=== PATIENT | female | born 1945 | race Caucasian/White ===

== ENCOUNTER → 2017-08-11 | Outpatient (CLI) | payer MEDICARE, OTHER ==
--- NOTE | 2017-08-11 14:25 | RAD ---
Thyroid ultrasound, 08/11/2017: History: Thyromegaly The right lobe of the gland measures 7.0 x 2.8 x 4.6 cm while the left lobe of the gland measures 5.2 x 1.7 x 1.9 cm. Multiple appearing thyroid nodules are present in both lobes. The largest of these measures 3.4 cm in greatest diameter and lies in the midportion of the right lobe of the gland. Its margins are smooth with a hypoechoic rim. Its internal echoes are heterogeneous. There is internal color flow. A single tiny probable calcification is seen along its rim. It is wider than tall. There is a 2.7 cm solid-appearing nodule with similar sonographic characteristics in the lower pole of the right lobe of the gland. No definite internal calcification is seen. Its inferior margin is less clearly defined due to its low position. There is a 3 cm solid nodule at the junction of the right lobe of the gland and the isthmus. There appear to be several internal calcifications. This nodule is smooth and wider than tall. There is a 2.1 cm solid, heterogeneous nodule in the lower pole of the left lobe of the gland. No internal calcifications are seen. IMPRESSION: Multinodular goiter as described above. The sonographic characteristics of these nodules are nonspecific. Ultrasound-guided biopsy of the dominant nodule in the mid right lobe and the slightly smaller nodule containing calcifications at the junction of the isthmus and right lobe may be considered for further evaluation.
== END | disposition home or self-care (01) ==
LOC: US 12:42
PROVIDERS: ATTEND Nurse Practitioner Family
DX: E04.2 Nontoxic multinodular goiter (principal)
CPT/HCPCS: 76536

== ENCOUNTER → 2017-10-29 | Outpatient (CLI) | payer MEDICARE, OTHER ==
[~2017-10-29] MED LIST: IOHEXOL 240 MG/ML 50ML VIAL. ONE; IOHEXOL 300 MG/ML 75 ML VIAL. IV ONE
--- NOTE | 2017-10-29 15:14 | RAD ---
CT abdomen and pelvis with contrast Indication: LOWER ABDOMINAL PAIN WITH BOWEL CHANGES
ORAL AND 75MLS OMNI 300 IV CONTRAST. . Technique: Intravenous contrast is given. Oral contrast was also given. Comparison:None available Exposure: One or more of the following individualized dose reduction techniques were utilized for this examination: 1. Automated exposure control 2. Adjustment of the mA and/or kV according to patient size 3. Use of iterative reconstruction technique. FINDINGS: Lower thorax: Tiny noncalcified pulmonary nodule on image 1, in the posterior right lung base, measures 2 mm. Mild linear fibrosis or atelectasis in the bases. Pneumoperitoneum:No gross pneumoperitoneum. Liver: Unremarkable Spleen: Unremarkable Pancreas: Tiny low-density lesion in the proximal body of the pancreas, measures 5 mm diameter. This is too small to accurately characterize, but may be fatty, and therefore most compatible with a small lipoma. Adrenals: Small left adrenal nodule measures 19 mm diameter. This measures greater than the density typically associated with an adenoma. Kidneys: Large cyst arising from the lower pole of the left kidney measures 12 Hounsfield units and 7 cm diameter. Gallbladder: Surgically absent. Mild dilatation of the common bile duct. Aorta: Abdominal aorta is nonaneurysmal Lymph nodes: No significant enlargement GI tract: Mild colonic diverticulosis. No evidence of acute colitis. No bowel obstruction. Appendix: Not visualized. Ascites: No gross ascites. Urinary bladder: Not opacified, but no apparent abnormality. No evidence of pelvic mass. Bones: Degenerative changes of the spine. IMPRESSION: 1. Small 5 mm hypodense lesion of the pancreas. This may represent a small lipoma but is too small to characterize. Depending on concern, consider follow-up CT scan to monitor stability, or further evaluation with MRI of the pancreas. 2. Small 2 mm right lower lobe pulmonary nodule. Consider follow-up CT chest in 12 months if patient is high risk, as per Fleischner Society criteria. 3. Small left adrenal mass measures 19 mm. This measures about 60 Hounsfield units and is therefore indeterminate. Follow-up CT scan in 4 months could be of benefit to determine if this is stable. Depending on level of concern, MRI or PET/CT could also further evaluate. 4. No acute findings in the abdomen or pelvis. Electronically signed by: Ethan Merino MD (10/29/2017 3:10 PM) [facility]
== END | disposition home or self-care (01) ==
LOC: CT 10:07
PROVIDERS: ATTEND Nurse Practitioner Family
DX: K57.30 Diverticulosis of large intestine without perforation or abscess without bleeding (principal); K86.9 Disease of pancreas, unspecified; K52.89 Other specified noninfective gastroenteritis and colitis; E27.9 Disorder of adrenal gland, unspecified; R91.1 Solitary pulmonary nodule
CPT/HCPCS: 74177; Q9966; Q9967

== ENCOUNTER → 2018-02-25 | Outpatient (CLI) | payer MEDICARE, OTHER ==
[~2018-02-25] MED LIST changes: +IOHEXOL 240 MG/ML 50ML VIAL. PO ONE
--- NOTE | 2018-02-25 09:38 | RAD ---
PQRS Compliance Statement: One or more of the following individualized dose reduction techniques were utilized for this examination: 1. Automated exposure control 2. Adjustment of the mA and/or kV according to patient size 3. Use of iterative reconstruction technique CT abdomen/pelvis with contrast 02/25/2018 9:00 AM INDICATION: 4 month follow-up for adrenal lesion. COMPARISON: CT abdomen/pelvis August 28, 2018 TECHNIQUE: Multiple axial CT images of the abdomen and pelvis were obtained after the intravenous administration of 75 mL Omnipaque 300. Coronal and sagittal reformats are provided. FINDINGS: Previously seen 2 mm noncalcified pulmonary nodule is outside of the field of view on this examination. Lung bases are clear. Heart size is within normal limits. Hypoattenuation of the hepatic parenchyma suggestive of hepatic steatosis. No suspicious hepatic masses are identified. Spleen and right adrenal gland are normal in appearance. There is a left adrenal nodule which is heterogeneously enhancing which measures 19 x 14 mm, not significantly changed since the prior examination. Stable focal fat attenuation focus within the neck/body of the pancreas which may represent interspersed fat versus lipoma. This finding is not changed since the prior examination. Gallbladder surgically absent. Common bile duct measures 19 mm which is stable and favor to be secondary to reservoir effect status post cholecystectomy. The abdominal aorta is normal in course and caliber. There are no pathologically enlarged lymph nodes in the abdomen and pelvis. There is no abdominal free fluid. There is no free intraperitoneal air. Mild atherosclerotic changes of the abdominal aorta are present. The kidneys enhance symmetrically. There is no suspicious renal mass. There is no hydronephrosis. There are no suspected calculi within the kidneys, ureters or urinary bladder. There is a 5.7 cm simple cyst arising from the inferior pole the left kidney. Oral contrast was administered. Opacified bowel loops demonstrate normal mucosal fold pattern. Small and large bowel are normal in caliber. There is no evidence for bowel obstruction. There are no pericolonic inflammatory changes. A normal, nondilated appendix is visualized without adjacent inflammatory changes. Moderate diverticulosis of the sigmoid colon is noted without adjacent inflammatory changes. Endometrium is thickened measuring 10 mm. No definite masses are identified within the uterus. Right adnexal cyst measures 1.8 cm. Findings are stable dating back to 11/26/2017. Correlation with any hormone replacement therapy is recommended. No suspicious osseous lesions are identified. Urinary bladder is within normal limits given degree of distention. IMPRESSION: 1. Stable heterogeneously enhancing left adrenal lesion measuring 19 x 14 mm. Primary consideration would be given for an adrenal adenoma, however further characterization with adrenal protocol CT or MRI may be of benefit. 2. Stable focal fat attenuation within the body/neck of the pancreas measuring 5 mm. This favors interspersed fat or a lipoma. 3. Stable inferior pole left renal cyst. 4. Marginally thickened endometrium for a postmenopausal female. Correlation with hormone replacement therapy is recommended. Further characterization with pelvic ultrasound or MRI may be of benefit. Correlate with any history of dysfunctional uterine bleeding. This finding is overall stable from prior examination. Right adnexal cyst measures 1.8 cm. Electronically signed by: Gifty Colin MD (02/25/2018 9:35 AM) [facility]
== END | disposition home or self-care (01) ==
LOC: CT 07:52
PROVIDERS: ATTEND Nurse Practitioner Family
DX: N28.1 Cyst of kidney, acquired (principal); D35.00 Benign neoplasm of unspecified adrenal gland; N83.8 Other noninflammatory disorders of ovary, fallopian tube and broad ligament; Z90.49 Acquired absence of other specified parts of digestive tract
CPT/HCPCS: 74177; Q9966; Q9967

== ENCOUNTER 2018-12-09 16:16 | Inpatient (IN) | payer MEDICARE, OTHER ==
[~2018-12-09] VITALS: Ht 157.5 cm; Wt 71.2 kg
[2018-12-09 16:56] VITALS: BP 150/90
[2018-12-09] MEDS ORDERED: ACETAMINOPHEN 325 MG TABLET PO PRN (17:00)
[2018-12-09] MEDS ORDERED: IOHEXOL 240 MG/ML 50ML VIAL. ONE (17:17)
[2018-12-09 17:20] LABS: BASO % 0 % (0-3); EOS % 0 % (0-3); HEMATOCRIT 39.9 % (36.0-47.0); HEMOGLOBIN 13.4 g/dL (12.0-15.5); LYMPH # 2.1 x10^3/uL (1.0-4.8); LYMPH % 15 % (24-48); MEAN CORPUSCULAR HEMOGLOBIN 28 pg (25-35); MEAN CORPUSCULAR HGB CONC 34 g/dL (31-37); MEAN CORPUSCULAR VOLUME 84 fL (79-100); MONO # 1.4 x10^3/uL (0.0-1.1); MONO % 10 % (0-9); NEUT # 10.1 x10^3uL (1.8-7.7); NEUT % 74 % (31-73); PLATELET COUNT 260 x10^3/uL (140-400); RED BLOOD COUNT 4.73 x10^6/uL (3.50-5.40); RED CELL DISTRIBUTION WIDTH 13.9 % (11.5-14.5); WHITE BLOOD COUNT 13.7 x10^3/uL (4.0-11.0)
[2018-12-09] MEDS ORDERED: IOHEXOL 300 MG/ML 75 ML VIAL. IV ONE (17:30)
[2018-12-09 17:47] LABS: ALBUMIN 3.9 g/dL (3.4-5.0); ALBUMIN/GLOBULIN RATIO 1.1 (1.0-1.7); CALCIUM 9.2 mg/dL (8.5-10.1); CREATININE 0.7 mg/dL (0.6-1.0); GFR 82.3; MAGNESIUM 1.7 mg/dL (1.8-2.4); POTASSIUM 3.6 mmol/L (3.5-5.1); TOTAL PROTEIN 7.6 g/dL (6.4-8.2)
[2018-12-09] MEDS: IV NORMAL SALINE 1,000ML 1,000 ML IV SCH (18:30)
[2018-12-09 19:42] VITALS: BP 129/79
[2018-12-09 20:24] LABS: BACTERIA,URINE 0 /HPF (0-FEW); BILIRUBIN,URINE NEG (NEG); CLARITY,URINE HAZY; COLOR,URINE YELLOW; GLUCOSE,URINE NEG (NEG); NITRITE,URINE NEG (NEG); RBC,URINE 0 /HPF (0-2); SQUAMOUS EPITHELIAL CELL,UR OCC /LPF; UROBILINOGEN,URINE 0.2 mg/dL (0.2 mg/dL); WBC,URINE 0 /HPF (0-4)
[2018-12-09 22:20] VITALS: BP 113/71
[2018-12-09] MEDS ORDERED: KETOROLAC 15 MG/ML VIAL. IV PRN (23:00)
[2018-12-09] MEDS ORDERED: ONDANSETRON ODT 4 MG TAB.RAPDIS PO PRN (23:00)
[2018-12-09] MEDS ORDERED: ZOLPIDEM 5 MG TABLET. PO PRN (23:00)
[2018-12-10] MEDS: IV NORMAL SALINE 1,000ML 1,000 ML IV SCH ×3 (05:02→16:52)
[2018-12-10 05:08] VITALS: BP 110/67
[2018-12-10 06:24] LABS: BASO % 0 % (0-3); CALCIUM 8.2 mg/dL (8.5-10.1); CREATININE 0.6 mg/dL (0.6-1.0); EOS # 0.1 x10^3/uL (0.0-0.7); EOS % 1 % (0-3); GFR 98.3; HEMATOCRIT 34.4 % (36.0-47.0); HEMOGLOBIN 11.7 g/dL (12.0-15.5); LYMPH # 1.4 x10^3/uL (1.0-4.8); LYMPH % 13 % (24-48); MEAN CORPUSCULAR HEMOGLOBIN 29 pg (25-35); MEAN CORPUSCULAR HGB CONC 34 g/dL (31-37); MEAN CORPUSCULAR VOLUME 85 fL (79-100); MONO # 1.1 x10^3/uL (0.0-1.1); MONO % 10 % (0-9); NEUT # 8.5 x10^3uL (1.8-7.7); NEUT % 76 % (31-73); PLATELET COUNT 204 x10^3/uL (140-400); POTASSIUM 3.6 mmol/L (3.5-5.1); RED BLOOD COUNT 4.04 x10^6/uL (3.50-5.40); RED CELL DISTRIBUTION WIDTH 13.8 % (11.5-14.5); WHITE BLOOD COUNT 11.1 x10^3/uL (4.0-11.0)
[2018-12-10] MEDS ORDERED: OMEP20CA9 PO (06:49)
[2018-12-10] MEDS ORDERED: FENO54TA PO (06:49)
[2018-12-10] MEDS ORDERED: RALO60TA10 PO (06:49)
[2018-12-10] MEDS ORDERED: MAGNESIUM SULFATE 2GM 50 ML IV ONE (07:50)
[2018-12-10] MEDS ORDERED: PANTOPRAZOLE 40 MG TABLET. PO ONE (08:22)
--- NOTE | 2018-12-10 08:38 | RAD ---
CT of the abdomen and pelvis with contrast, 12/09/2018: HISTORY: Abdominal pain, fever, possible diverticulitis Multidetector CT imaging was performed following oral and IV administration of contrast. Comparison is made to a study from 02/25/2018. There is mild linear scarring in the lung bases. The gallbladder is surgically absent. Prominence of the common bile duct is probably secondary to the postcholecystectomy state. No intrahepatic bile duct dilatation or hepatic mass is seen. The pancreas is unremarkable. The spleen is of normal size. There is a 6.7 cm cyst arising from the lower pole the left kidney. The kidneys are otherwise unremarkable. There is a heterogeneously enhancing left adrenal nodule. In the axial plane it measures 2.1 cm in maximum dimension compared to 1.9 cm on the 02/25/2018 exam. In the coronal plane it measures 2.5 cm in craniocaudad extent compared to a measurement of 2.1 cm on a study from 10/29/2017. The nodule therefore appears to be slowly enlarging. Its CT characteristics are nonspecific. The right adrenal gland is unremarkable. Moderate aortoiliac calcific plaquing is present without evidence of aneurysm. No abdominal or pelvic adenopathy is seen. The uterus is of normal size. There is extensive sigmoid diverticulosis. There is retained contrast material within multiple diverticula. There is probable mural thickening at the mid sigmoid level, although the lumen is not clearly defined. There is streaky increased density in the paracolic fat at this level compatible with inflammation. No discrete paracolic abscess or extraluminal gas collections are seen. There is no evidence of bowel obstruction. No free fluid is evident in the abdomen or pelvis. There are mild scattered degenerative changes in the spine. IMPRESSION: 1. Sigmoid diverticulitis. 2. Slowly enlarging left adrenal nodule. MR scanning may be useful for further evaluation. 3. Moderate sized left renal cyst. PQRS Compliance Statement: One or more of the following individualized dose reduction techniques were utilized for this examination: 1. Automated exposure control 2. Adjustment of the mA and/or kV according to patient size 3. Use of iterative reconstruction technique Electronically signed by: Tyler Shah MD (12/10/2018 8:36 AM) [facility]
[2018-12-10] MEDS: PANTOPRAZOLE 40 MG TABLET. PO SCH (09:00)
[2018-12-10] MEDS: FENOFIBRATE NANOCRYSTALLIZED 48 MG TABLET PO SCH (09:00)
[2018-12-10 10:50] VITALS: BP 109/70
[2018-12-10] MEDS ORDERED: ONDANSETRON PF 4 MG/2 ML VIAL. IV PRN (11:15)
[2018-12-10 14:54] VITALS: BP 113/69
--- NOTE | 2018-12-10 18:56 | PN ---
DATE: 12/10/2018 SUBJECTIVE: A 73-year-old female came in with left lower quadrant pain. She has diverticulitis, never had it before. The patient's white count went from 13 down to 11. OBJECTIVE: VITAL SIGNS: The patient's vital signs remain basically stable, low grade temperature of 99.2, blood pressure 110/67, respiratory rate 18, pulse 81. GENERAL: The patient is alert and oriented. LUNGS: Clear. CARDIOVASCULAR: Stable. ABDOMEN: Definitely tender in the left lower quadrant, says it is a little better from yesterday, but still marked guarding was noted. LABORATORY DATA: Noted above. IMPRESSION: Diverticulitis. Continue to monitor the patient accordingly, continue with IV antibiotic. She continues on metronidazole and levofloxacin, probably on a clear liquid diet for now. Discussed diverticulitis with her, probably needs colonoscopy in a couple of months. IMPRESSION: Diverticulitis. PLAN: As above. KIRA BRICEÑO MD DR: JEREMI/mohit JOB#: [id number] / [id number]
[2018-12-10 19:20] VITALS: BP 111/71
[2018-12-10] MEDS: LACTOBACILLUS RHAMNOSUS GG 1 CAPSULE. PO SCH (21:50)
[2018-12-10 23:00] VITALS: BP 108/73
[2018-12-11 04:35] VITALS: BP 111/70
[2018-12-11] MEDS ORDERED: NON FORMULARY ITEM (Omeprazole 20 MG) PO SCH (07:30)
[2018-12-11] MEDS: FENOFIBRATE NANOCRYSTALLIZED 48 MG TABLET PO SCH (07:42)
[2018-12-11] MEDS: LACTOBACILLUS RHAMNOSUS GG 1 CAPSULE. PO SCH ×2 (07:42→21:35)
[2018-12-11] MEDS: PANTOPRAZOLE 40 MG TABLET. PO SCH (07:42)
[2018-12-11] MEDS: IV NORMAL SALINE 1,000ML 1,000 ML IV SCH ×2 (07:43→17:46)
[2018-12-11 10:15] VITALS: BP 124/75
[2018-12-11 16:00] VITALS: BP 147/78
[2018-12-11 19:16] VITALS: BP 133/78
[2018-12-11 23:10] VITALS: BP 120/74
--- NOTE | 2018-12-12 00:20 | PN ---
DATE: 12/11/2018 SUBJECTIVE: A 73-year-old female in with severe diverticulitis. The patient is resting fairly comfortably. She has been pretty much afebrile. She did have 1 low grade temperature of 99.2 and considering that her pulse and the rest of her labs have been looking fairly stable. The patient otherwise continues to receive IV Flagyl and Levaquin. She is still having tenderness in the left lower quadrant and so reluctant to turn her over to oral antibiotics at this time. OBJECTIVE: VITAL SIGNS: Otherwise, her blood pressure 147/80, respiratory rate 18, pulse 65, afebrile. LUNGS: Diminished, clear. CARDIOVASCULAR: Stable. ABDOMEN: Soft, diffuse tenderness in the left lower quadrant. IMPRESSION: Diverticulitis. PLAN: Continue on IV antibiotic therapy. She is on a low fiber diet. Continue with such. KIRA BRICEÑO MD DR: JEREMI/mohit JOB#: [id number] / [id number]
[2018-12-12] MEDS: IV NORMAL SALINE 1,000ML 1,000 ML IV SCH ×2 (04:59→15:00)
[2018-12-12 05:49] VITALS: BP 127/75
[2018-12-12] MEDS: LACTOBACILLUS RHAMNOSUS GG 1 CAPSULE. PO SCH (08:28)
[2018-12-12] MEDS: FENOFIBRATE NANOCRYSTALLIZED 48 MG TABLET PO SCH (08:30)
[2018-12-12] MEDS: PANTOPRAZOLE 40 MG TABLET. PO SCH (08:30)
[2018-12-12 12:13] LABS: BASO # 0.1 x10^3/uL (0.0-0.2); BASO % 1 % (0-3); EOS # 0.2 x10^3/uL (0.0-0.7); EOS % 3 % (0-3); HEMATOCRIT 34.1 % (36.0-47.0); HEMOGLOBIN 11.5 g/dL (12.0-15.5); LYMPH # 1.9 x10^3/uL (1.0-4.8); LYMPH % 31 % (24-48); MEAN CORPUSCULAR HEMOGLOBIN 29 pg (25-35); MEAN CORPUSCULAR HGB CONC 34 g/dL (31-37); MEAN CORPUSCULAR VOLUME 86 fL (79-100); MONO # 0.5 x10^3/uL (0.0-1.1); MONO % 9 % (0-9); NEUT # 3.3 x10^3uL (1.8-7.7); NEUT % 56 % (31-73); PLATELET COUNT 200 x10^3/uL (140-400); RED BLOOD COUNT 3.96 x10^6/uL (3.50-5.40); RED CELL DISTRIBUTION WIDTH 13.9 % (11.5-14.5)
[2018-12-12 12:30] LABS: ALBUMIN 2.9 g/dL (3.4-5.0); ALBUMIN/GLOBULIN RATIO 0.8 (1.0-1.7); CALCIUM 8.5 mg/dL (8.5-10.1); CREATININE 0.6 mg/dL (0.6-1.0); GFR 98.3; POTASSIUM 3.8 mmol/L (3.5-5.1); TOTAL BILIRUBIN 0.2 mg/dL (0.2-1.0); TOTAL PROTEIN 6.4 g/dL (6.4-8.2)
[2018-12-12] MEDS ORDERED: METR250T PO (14:53)
[2018-12-12] MEDS ORDERED: LEVO500T59 PO (14:53)
--- NOTE | 2018-12-12 16:33 | DS ---
DATE OF DISCHARGE: 12/12/2018 HOSPITAL COURSE: The patient is a 73-year-old female patient who was admitted on 12/10/2018 with abdominal pain, mostly in her left lower quadrant. She has diverticulitis, never had any episode like this before. Her white cell count was elevated and did have a low grade fever. Initially, she was started on IV Flagyl as well as Levaquin. She did well. She has had no fever, abdominal pain has largely subsided. Her white cell count came down steadily from 13,700 down to 6,000 and a decision was made to discharge her home to continue treatment on oral antibiotic. PHYSICAL EXAMINATION: GENERAL: When I saw her this afternoon, she looked well and was clearly in no apparent respiratory distress. No pallor, jaundice, cyanosis, or thyromegaly. No jugular venous distension. No limb edema. VITAL SIGNS: Her heart rate was 57, blood pressure was 127/75, temperature was 97.9, respiratory rate was 16 and oxygen saturation was 94%. HEAD, EYES, EARS, NOSE AND THROAT: Showed normocephalic, atraumatic. NECK: Supple. HEART: Showed normal first and second heart sounds. No gallop, rub or murmur. CHEST: Clear to auscultation. No crepitation or rhonchi. ABDOMEN: Distended, soft, nontender. NEUROLOGIC: She was awake, alert, responding appropriately. All cranial nerves are intact. She moves extremities without difficulty. She ambulates without assistance or assistive devices. Her intake was 3260, output was 1550. LABORATORY DATA: As of this morning, her white cell count was 6000, hemoglobin 11.5, hematocrit 34, MCV 86 and platelet count of 200,000. Her serum sodium was 144, potassium 3.8, chloride 110, bicarbonate 24, anion gap of 10, BUN 10, creatinine 0.6, estimated GFR was 98 mL per minute. Her glucose was 111. Her calcium was 8.5. Total bilirubin, AST, ALT, alkaline phosphatase were normal. Total protein was 6.4, albumin was 2.9. DISCHARGE MEDICATIONS: She was discharged home to continue on fenofibrate 54 mg daily, omeprazole 20 mg daily, raloxifene 60 mg once a day, Flagyl 500 mg 3 times a day for 7 days, and Levaquin 500 mg once a day for 7 days. FINAL DISCHARGE DIAGNOSIS: Acute diverticulitis. CASSY VELA MD DR: MAGDALENO/mohit JOB#: [id number] / [id number]
== END 2018-12-12 16:55 | disposition home or self-care (01) | DRG 872 ==
LOC: 1 SOUTH 16:40
PROVIDERS: ADMIT Family Medicine; ATTEND Family Medicine
DX: A41.9 Sepsis, unspecified organism (principal); K57.92 Diverticulitis of intestine, part unspecified, without perforation or abscess without bleeding; Z88.0 Allergy status to penicillin; Z88.2 Allergy status to sulfonamides; Z88.8 Allergy status to other drugs, medicaments and biological substances
CPT/HCPCS: 36415; 74177; 80048; 80053; 81001; 82150; 83605; 83690; 83735; 84443; 85025; 87040; J1885; J1956; J2405; J3475; J3490; Q9967; J7030

== ENCOUNTER 2018-12-27 09:00 | Emergency (ER) | payer OTHER ==
[~2018-12-27] VITALS: Ht 157.5 cm; Wt 68.8 kg
[~2018-12-27 09:00] MED LIST changes: +FENO54TA PO; -IOHEXOL 240 MG/ML 50ML VIAL. ONE; -IOHEXOL 240 MG/ML 50ML VIAL. PO ONE; -IOHEXOL 300 MG/ML 75 ML VIAL. IV ONE; +LEVO500T59 PO; +METR250T PO; +OMEP20CA9 PO; +RALO60TA10 PO
--- NOTE | 2018-12-27 09:19 | PHYS DOC ---
Adult General Chief Complaint Chief Complaint: BACK PAIN OR INJURY [facility] HPI 73-year-old female presents with right shoulder blade pain. The patient states that the pain started after she woke up from a nap. She had been sleeping on her right arm. She initially had some neck discomfort that day, but the pain is now at the inferior angle of the shoulder blade. She currently rates it a 6 out of 10, throbbing pain. She has no direct trauma or overuse that she can think of. She has been taking ibuprofen, Tylenol, Voltaren gel, and lidocaine patches. The patches help a little bit, but the pain continues to come in waves. She does have some mild shortness of breath when she takes a deep breath and the pain and spasms. She denies diaphoresis. Exertion doesn't seem to make it worse. The patient has no cardiac history. She has not had a cardiac catheter or stress test. She denies fever or chills. Denies cough or other symptoms of URI. No history of kidney stones. Denies dysuria or urinary frequency. Review of Systems Review of Systems Constitutional: Denies fever or chills [] Eyes: Denies change in visual acuity, redness, or eye pain [] HENT: Denies nasal congestion or sore throat [] Respiratory: Denies cough or shortness of breath [] Cardiovascular: No additional information not addressed in HPI [] GI: Denies abdominal pain, nausea, vomiting, bloody stools or diarrhea [] : Denies dysuria or hematuria [] Musculoskeletal: right shoulder blade pain [] Integument: Denies rash or skin lesions [] Neurologic: Denies headache, focal weakness or sensory changes [] Endocrine: Denies polyuria or polydipsia [] All other systems were reviewed and found to be within normal limits, except as documented in this note. Allergies Allergies Allergies Coded Allergies Type Severity Reaction Last Updated Verified Penicillins Allergy Intermediate 12/10/18 Yes Sulfa (Sulfonamide Antibiotics) Allergy Intermediate 12/10/18 Yes dexamethasone Allergy Intermediate 12/10/18 Yes sulfasalazine Allergy Intermediate 12/10/18 Yes Uncoded Allergies Type Severity Reaction Last Updated Verified STEROIDS Adverse Reaction Unknown flushing, rapid heartrate, sleeplessness Physical Exam Physical Exam Constitutional: Well developed, well nourished, no acute distress, non-toxic appearance. [] HENT: Normocephalic, atraumatic, bilateral external ears normal, oropharynx moist, no oral exudates, nose normal. [] Eyes: PERRLA, EOMI, conjunctiva normal, no discharge. [] Neck: Normal range of motion, no tenderness, supple, no stridor. [] Cardiovascular:Heart rate regular rhythm, no murmur [] Lungs & Thorax: Bilateral breath sounds clear to auscultation [] Abdomen: Bowel sounds normal, soft, no tenderness, no masses, no pulsatile masses. [] Skin: Warm, dry, no erythema, no rash. [] Back: Mild tenderness to palpation of inferior angle right scapula [] Extremities: No tenderness, no cyanosis, no clubbing, ROM intact, no edema. [] Neurologic: Alert and oriented X 3, normal motor function, normal sensory function, no focal deficits noted. [] Psychologic: Affect normal, judgement normal, mood normal. [] EKG EKG [] Radiology/Procedures Radiology/Procedures [] Impressions: THORACIC SPINE 3V, CHEST PA LATERAL History: Upper Thoracic pain x 3 days, no known falls Comparison: None. Findings: PA and lateral views of chest were obtained. Total 3 images of the thoracic spine were provided. The cardiomediastinal silhouette is normal. Pulmonary vasculature is normal. Mild bibasilar atelectasis is present. Calcified hilar lymph nodes are present. No pleural effusion or pneumothorax is seen. There is no acute bone abnormality. Right upper quadrant surgical clips are present. Alignment is normal. No displaced fracture or bony destruction. Vertebral body heights are unremarkable. IMPRESSION: Mild bibasilar atelectasis. Consider follow-up to resolution. No acute bony process. Electronically signed by: Viviana Smith MD (12/27/2018 9:53 AM) [facility] DICTATED AND SIGNED BY: VIVIANA SMITH MD DATE: 12/27/18 0953 CC: NAZARIO FUNEZ DO; KIRA BRICEÑO MD ~ Course & Med Decision Making Course & Med Decision Making Pertinent Labs and Imaging studies reviewed. (See chart for details) The patient's x-rays are negative for acute fracture or misalignment. She does have shown degenerative change in the spine and neck. The patient's EKG is unremarkable. Her labs are unremarkable. Her troponin is negative. Her chest x- ray shows some mild atelectasis which may be due to her not taking deep breaths due to pain. The patient's symptoms sound suspicious of possible disc herniation in the C5-C7 region. She is not having any upper extremity symptoms, but is having neck pain in this region and the timing of the beginning of her symptoms is suspicious for cervical spine cause. The patient cannot tolerate steroids. Advised 6 her milligrams of ibuprofen 3 times a day and follow with her PCP to consider further imaging and/or physical therapy. The patient understands this and is in agreement. She is stable for discharge at this time. [] Dragon Disclaimer Dragon Disclaimer This electronic medical record was generated, in whole or in part, using a voice recognition dictation system. Departure Departure: Impression: Primary Impression: Cervical pain Additional Impression: Shoulder blade pain Disposition: 01 HOME, SELF-CARE Condition: STABLE Referrals: KIRA BRICEÑO MD (PCP) Patient Instructions: Cervical Sprain, [id number] Additional Instructions: Ibuprofen 600 mg 3 times a day for 5 days. Always eat a little bit of food when you take ibuprofen. Take the T[place]well when the pain is especially bothersome. Do not take Tylenol with this medication. You can try the cyclobenzaprine, but be aware may make sleepy. Scripts Cyclobenzaprine Hcl (CYCLOBENZAPRINE HCL) 5 Mg Tablet 1 TAB PO TID PRN for MUSCLE SPASMS, #30 TAB Prov: NAZARIO FUNEZ DO 12/27/18 Hydrocodone Bit/Acetaminophen (NORCO 5-325 TABLET) 1 Each Tablet 1 TAB PO PRN Q6HRS PRN for PAIN, #10 TAB 0 Refills Prov: NAZARIO FUNEZ DO 12/27/18 Problem Qualifiers NAZARIO FUNEZ DO Dec 27, 2018 09:18
[2018-12-27 09:38] LABS: BASO # 0.1 x10^3/uL (0.0-0.2); BASO % 1 % (0-3); EOS % 1 % (0-3); HEMATOCRIT 37.3 % (36.0-47.0); HEMOGLOBIN 12.3 g/dL (12.0-15.5); LYMPH # 1.3 x10^3/uL (1.0-4.8); LYMPH % 14 % (24-48); MEAN CORPUSCULAR HEMOGLOBIN 28 pg (25-35); MEAN CORPUSCULAR HGB CONC 33 g/dL (31-37); MEAN CORPUSCULAR VOLUME 86 fL (79-100); MONO % 10 % (0-9); NEUT # 6.8 x10^3uL (1.8-7.7); NEUT % 74 % (31-73); PLATELET COUNT 287 x10^3/uL (140-400); RED BLOOD COUNT 4.34 x10^6/uL (3.50-5.40); RED CELL DISTRIBUTION WIDTH 13.8 % (11.5-14.5); WHITE BLOOD COUNT 9.3 x10^3/uL (4.0-11.0)
[2018-12-27 09:55] LABS: ALBUMIN 3.2 g/dL (3.4-5.0); ALBUMIN/GLOBULIN RATIO 0.8 (1.0-1.7); CALCIUM 9.2 mg/dL (8.5-10.1); CREATININE 0.8 mg/dL (0.6-1.0); GFR 70.5; POTASSIUM 3.9 mmol/L (3.5-5.1); TOTAL BILIRUBIN 0.6 mg/dL (0.2-1.0); TOTAL PROTEIN 7.3 g/dL (6.4-8.2)
--- NOTE | 2018-12-27 09:56 | RAD ---
THORACIC SPINE 3V, CHEST PA LATERAL History: Upper Thoracic pain x 3 days, no known falls Comparison: None. Findings: PA and lateral views of chest were obtained. Total 3 images of the thoracic spine were provided. The cardiomediastinal silhouette is normal. Pulmonary vasculature is normal. Mild bibasilar atelectasis is present. Calcified hilar lymph nodes are present. No pleural effusion or pneumothorax is seen. There is no acute bone abnormality. Right upper quadrant surgical clips are present. Alignment is normal. No displaced fracture or bony destruction. Vertebral body heights are unremarkable. IMPRESSION: Mild bibasilar atelectasis. Consider follow-up to resolution. No acute bony process. Electronically signed by: Gera Cosme MD (12/27/2018 9:53 AM) [facility]
[2018-12-27 09:57] LABS: BACTERIA,URINE FEW /HPF (0-FEW); BILIRUBIN,URINE NEG (NEG); CLARITY,URINE CLEAR; COLOR,URINE YELLOW; GLUCOSE,URINE NEG (NEG); NITRITE,URINE NEG (NEG); RBC,URINE 0 /HPF (0-2); SQUAMOUS EPITHELIAL CELL,UR OCC /LPF; UROBILINOGEN,URINE 0.2 mg/dL (0.2 mg/dL)
[2018-12-27 10:06] VITALS: BP 139/79
[2018-12-27] MEDS ORDERED: HYDR-3165 PO (10:23)
[2018-12-27] MEDS ORDERED: CYCL5TAB PO (10:23)
--- NOTE | 2018-12-27 11:04 | EKG ---
[address] [address] Test Date: 2018-12-27 Test Time: 09:23:57 Pat Name: KARLA KWON Department: Room: Gender: F Preparator: : 1945 Requested By: NAZARIO FUNEZ Order Number: [id number] Reading MD: Marino Salgado Measurements Intervals [place] Rate: 93 P: 12 [place]: 148 QRS: -13 QRSD: 80 T: 42 QT: 348 QTc: 435 Interpretive Statements SINUS RHYTHM LEFTWARD AXIS ST & T ABNORMALITY, CONSIDER HIGH LATERAL ISCHEMIA OR LEFT VENTRICULAR STRAIN ABNORMAL ECG Electronically Signed On 01-04-2019 12:52:22 CDT by Marino Salgado
[2019-01-03] MEDS ORDERED: APIX5TAB3 PO (09:07)
== END 2018-12-27 10:30 | disposition home or self-care (01) ==
LOC: ER 09:00
DX: M25.511 Pain in right shoulder (principal); M54.2 Cervicalgia; R06.02 Shortness of breath; Z88.0 Allergy status to penicillin; Z88.2 Allergy status to sulfonamides; Z88.8 Allergy status to other drugs, medicaments and biological substances
CPT/HCPCS: 36415; 71046; 72072; 80053; 81001; 84484; 85025; 87086; 93005; 99285

== ENCOUNTER 2019-01-02 09:51 | Observation (INO) | payer OTHER ==
[~2019-01-02] VITALS: Ht 158.8 cm; Wt 67.7 kg
[~2019-01-02 09:51] MED LIST changes: +CYCL5TAB PO; +HYDR-3165 PO
[2019-01-02] MEDS ORDERED: IV NORMAL SALINE 1,000ML 1,000 ML IV ONE (10:15)
[2019-01-02] MEDS ORDERED: IOHEXOL 350 MG/ML 100 ML VIAL. IV ONE (10:15)
--- NOTE | 2019-01-02 10:23 | PHYS DOC ---
Past History Past Medical History: Diverticulitis, High Cholesterol Past Surgical History: Cholecystectomy Alcohol Use: None Drug Use: None Adult General Chief Complaint Chief Complaint: ABNORMAL LABS HPI HPI 73-year-old female presents to the emergency room with abnormal labs. I saw the patient last week for flank pain with deep breathing and right-sided lower cervical pain. She thought it with her PCP as directed. PCP ordered a d-dimer which was elevated at 2.1. They informed the patient of these results yesterday evening and advised that she come in for further testing. She continues to have some flank and neck pain, but it is improved from previous. She has had Debby left leg pain last night, but denies increased swelling in either leg. She denies fever or chills. Review of Systems Review of Systems Constitutional: Denies fever or chills [] Eyes: Denies change in visual acuity, redness, or eye pain [] HENT: Denies nasal congestion or sore throat [] Respiratory: Pain with[] Cardiovascular: No additional information not addressed in HPI [] GI: Denies abdominal pain, nausea, vomiting, bloody stools or diarrhea [] : Denies dysuria or hematuria [] Musculoskeletal: Denies back pain or joint pain [] Integument: Denies rash or skin lesions [] Neurologic: Denies headache, focal weakness or sensory changes [] Endocrine: Denies polyuria or polydipsia [] All other systems were reviewed and found to be within normal limits, except as documented in this note. Current Medications Current Medications Current Medications Medications (Trade) Dose Ordered Sig/Ramírez Start Time Stop Time Status Last Admin Dose Admin Iohexol (Omnipaque 350 Mg/ml) 90 ml 1X ONCE 01/02/19 10:15 01/02/19 10:18 DC Sodium Chloride 1,000 ml @ 1,000 mls/hr 1X ONCE 01/02/19 10:15 01/02/19 11:14 Allergies Allergies Allergies Coded Allergies Type Severity Reaction Last Updated Verified Penicillins Allergy Intermediate 12/10/18 Yes Sulfa (Sulfonamide Antibiotics) Allergy Intermediate 12/10/18 Yes dexamethasone Allergy Intermediate 12/10/18 Yes sulfasalazine Allergy Intermediate 12/10/18 Yes Uncoded Allergies Type Severity Reaction Last Updated Verified STEROIDS Adverse Reaction Unknown flushing, rapid heartrate, sleeplessness Physical Exam Physical Exam Constitutional: Well developed, well nourished, no acute distress, non-toxic appearance. [] HENT: Normocephalic, atraumatic, bilateral external ears normal, oropharynx moist, no oral exudates, nose normal. [] Eyes: PERRLA, EOMI, conjunctiva normal, no discharge. [] Neck: Normal range of motion, no tenderness, supple, no stridor. [] Cardiovascular:Heart rate regular rhythm, no murmur [] Lungs & Thorax: Bilateral breath sounds clear to auscultation [] Abdomen: Bowel sounds normal, soft, no tenderness, no masses, no pulsatile masses. [] Skin: Warm, dry, no erythema, no rash. [] Back: No tenderness, no CVA tenderness. [] Extremities: No tenderness, no cyanosis, no clubbing, ROM intact, no edema. [] Neurologic: Alert and oriented X 3, normal motor function, normal sensory function, no focal deficits noted. [] Psychologic: Affect normal, judgement normal, mood normal. [] EKG EKG [] Radiology/Procedures Radiology/Procedures [] Impressions: Exam performed: CT pulmonary angiogram of the chest with contrast. Date: 01/02/2019. Comparison: None available Indication: Abdominal pain and coughing, right-sided chest pain for 3 days Technique: Contiguous helical acquisitions are obtained through the chest during intravenous administration of [ 90 ] cc of [ Omnipaque 350 ] . [Sagittal and coronal reformatted images and ] MIP images were obtained and reviewed Findings: There is a filling defect in the inferior segmental branch of the left pulmonary artery extending into subsegmental branches. There is also a small filling defect in the inferior subsegmental branch of the right pulmonary artery. No additional filling defects identified. There are linear bibasilar opacities likely atelectasis with more focal airspace opacities in the right lung base, possibly infiltrates. Emphysematous lungs. No pleural effusion is seen. Bilateral thyroid nodules with a dominant right thyroid nodule with retrosternal extension. There are multiple punctate calcifications within these thyroid nodules. There is [id number] deviation of the trachea secondary to the dominant right thyroid nodule. Aorta is normal in caliber without aneurysm, mild scattered atheromatous calcification is seen. No dominant mediastinal or hilar adenopathy is seen. There is a prominent precarinal lymph node measuring up to 9.9 mm. Heart size is normal without pericardial effusion. Upper abdominal structures appear unremarkable. There are spondylotic changes involving the thoracic spine Impression: 1. Study is positive for pulmonary embolism involving the superior segment of branch of the left pulmonary artery and the inferior subsegmental branch of the right pulmonary artery 2. Linear bibasilar opacities with airspace opacities in the right lung base probably atelectasis with infiltrate. The critical results were given to Dr. Funez, ER physician after completion of the study at 11:10 AM PQRS Compliance Statement: One or more of the following individualized dose reduction techniques were utilized for this examination: 1. Automated exposure control 2. Adjustment of the mA and/or kV according to patient size 3. Use of iterative reconstruction technique Electronically signed by: No Balderas MD (01/02/2019 11:11 AM) [facility] DICTATED AND SIGNED BY: NO BALDERAS MD DATE: 01/02/19 1111 CC: NAZARIO FUNEZ DO; KIRA BRICEÑO MD Course & Med Decision Making Course & Med Decision Making Pertinent Labs and Imaging studies reviewed. (See chart for details) The patient's labs are unremarkable. Her CTA is positive for pulmonary embolus. In fact, she has to. See official read for more details. I discussed the patient with Dr. Briceño and he has accepted her for admission. We will order bilateral lower extremity ultrasound and use Lovenox for her anticoagulant. [] Dragon Disclaimer Dragon Disclaimer This electronic medical record was generated, in whole or in part, using a voice recognition dictation system. Departure Departure: Impression: Primary Impression: Pulmonary emboli Disposition: ADMITTED INPATIENT Admitting Physician: Kira Briceño Condition: STABLE Referrals: KIRA BRICEÑO MD (PCP) Problem Qualifiers Primary Impression: Pulmonary emboli Pulmonary embolism type: other Chronicity: acute Acute cor pulmonale presence: without acute cor pulmonale Qualified Codes: I26.99 - Other pulmonary embolism without acute cor pulmonale NAZARIO FUNEZ DO Jan 02, 2019 10:23
[2019-01-02 10:34] LABS: BASO % 1 % (0-3); EOS # 0.2 x10^3/uL (0.0-0.7); EOS % 3 % (0-3); HEMATOCRIT 37.5 % (36.0-47.0); HEMOGLOBIN 12.6 g/dL (12.0-15.5); LYMPH # 1.9 x10^3/uL (1.0-4.8); LYMPH % 29 % (24-48); MEAN CORPUSCULAR HEMOGLOBIN 29 pg (25-35); MEAN CORPUSCULAR HGB CONC 34 g/dL (31-37); MEAN CORPUSCULAR VOLUME 85 fL (79-100); MONO # 0.7 x10^3/uL (0.0-1.1); MONO % 10 % (0-9); NEUT # 3.8 x10^3uL (1.8-7.7); NEUT % 58 % (31-73); PLATELET COUNT 323 x10^3/uL (140-400); RED BLOOD COUNT 4.41 x10^6/uL (3.50-5.40); RED CELL DISTRIBUTION WIDTH 13.7 % (11.5-14.5); WHITE BLOOD COUNT 6.5 x10^3/uL (4.0-11.0)
[2019-01-02 10:44] LABS: ALBUMIN 3.5 g/dL (3.4-5.0); ALBUMIN/GLOBULIN RATIO 0.8 (1.0-1.7); CALCIUM 9.7 mg/dL (8.5-10.1); CREATININE 0.8 mg/dL (0.6-1.0); GFR 70.5; POTASSIUM 3.5 mmol/L (3.5-5.1); TOTAL BILIRUBIN 0.3 mg/dL (0.2-1.0); TOTAL PROTEIN 7.7 g/dL (6.4-8.2)
--- NOTE | 2019-01-02 11:14 | RAD ---
Exam performed: CT pulmonary angiogram of the chest with contrast. Date: 01/02/2019. Comparison: None available Indication: Abdominal pain and coughing, right-sided chest pain for 3 days Technique: Contiguous helical acquisitions are obtained through the chest during intravenous administration of [ 90 ] cc of [ Omnipaque 350 ] . [Sagittal and coronal reformatted images and ] MIP images were obtained and reviewed Findings: There is a filling defect in the inferior segmental branch of the left pulmonary artery extending into subsegmental branches. There is also a small filling defect in the inferior subsegmental branch of the right pulmonary artery. No additional filling defects identified. There are linear bibasilar opacities likely atelectasis with more focal airspace opacities in the right lung base, possibly infiltrates. Emphysematous lungs. No pleural effusion is seen. Bilateral thyroid nodules with a dominant right thyroid nodule with retrosternal extension. There are multiple punctate calcifications within these thyroid nodules. There is equqp-or-lwjt deviation of the trachea secondary to the dominant right thyroid nodule. Aorta is normal in caliber without aneurysm, mild scattered atheromatous calcification is seen. No dominant mediastinal or hilar adenopathy is seen. There is a prominent precarinal lymph node measuring up to 9.9 mm. Heart size is normal without pericardial effusion. Upper abdominal structures appear unremarkable. There are spondylotic changes involving the thoracic spine Impression: 1. Study is positive for pulmonary embolism involving the superior segment of branch of the left pulmonary artery and the inferior subsegmental branch of the right pulmonary artery 2. Linear bibasilar opacities with airspace opacities in the right lung base probably atelectasis with infiltrate. The critical results were given to Dr. Posada, ER physician after completion of the study at 11:10 AM PQRS Compliance Statement: One or more of the following individualized dose reduction techniques were utilized for this examination: 1. Automated exposure control 2. Adjustment of the mA and/or kV according to patient size 3. Use of iterative reconstruction technique Electronically signed by: No Balderas MD (01/02/2019 11:11 AM) [facility]
[2019-01-02] MEDS ORDERED: MORPHINE SULFATE 4 MG/ML DISP.SYRIN. IV PRN (11:30)
[2019-01-02] MEDS ORDERED: MORPHINE SULFATE 2 MG/ML DISP.SYRIN. IV PRN (11:30)
[2019-01-02] MEDS ORDERED: ENOXAPARIN ** NOTE DOSE ** SYRINGE SQ ONE (11:30)
[2019-01-02] MEDS ORDERED: ONDANSETRON PF 4 MG/2 ML VIAL. IV PRN (11:30)
--- NOTE | 2019-01-02 12:49 | RAD ---
Bilateral Leg Venous Doppler Ultrasound, 01/02/2019 Indication: Bilateral leg pain Comparison: None available Procedure: Real-time grayscale, color flow color duplex Doppler and spectral analysis are obtained with and without compression in the area of the common femoral vein, superficial femoral vein - femoral vein junction, main femoral vein (superficial femoral vein) and popliteal vein. Veins of the proximal calf are also imaged. Findings: There is normal duplex flow, color flow and compressibility of all visualized vein segments. No evidence of deep venous thrombus is present. Impression: Negative venous Doppler of bilateral lower extremity Electronically signed by: No Balderas MD (01/02/2019 12:46 PM) [facility]
[2019-01-02 12:53] VITALS: BP 155/81
[2019-01-02 15:01] VITALS: BP 107/67
[2019-01-02 19:15] VITALS: BP 95/46
[2019-01-02] MEDS: ENOXAPARIN ** NOTE DOSE ** SYRINGE SQ SCH (20:53)
[2019-01-02] MEDS ORDERED: RALOXIFENE 60 MG TABLET. PO SCH (21:00)
[2019-01-02] MEDS ORDERED: ZOLPIDEM 5 MG TABLET. PO PRN (21:00)
[2019-01-02 23:21] VITALS: BP 106/66
[2019-01-03 06:18] VITALS: BP 115/73
[2019-01-03] MEDS ORDERED: PANTOPRAZOLE 40 MG TABLET. PO SCH (07:30)
[2019-01-03 08:33] LABS: BASO % 1 % (0-3); EOS # 0.2 x10^3/uL (0.0-0.7); EOS % 4 % (0-3); HEMATOCRIT 38.4 % (36.0-47.0); HEMOGLOBIN 12.8 g/dL (12.0-15.5); LYMPH # 2.2 x10^3/uL (1.0-4.8); LYMPH % 36 % (24-48); MEAN CORPUSCULAR HEMOGLOBIN 28 pg (25-35); MEAN CORPUSCULAR HGB CONC 33 g/dL (31-37); MEAN CORPUSCULAR VOLUME 85 fL (79-100); MONO # 0.5 x10^3/uL (0.0-1.1); MONO % 8 % (0-9); NEUT # 3.1 x10^3uL (1.8-7.7); NEUT % 51 % (31-73); PLATELET COUNT 315 x10^3/uL (140-400); RED CELL DISTRIBUTION WIDTH 13.9 % (11.5-14.5)
[2019-01-03 08:42] LABS: ALBUMIN 3.4 g/dL (3.4-5.0); ALBUMIN/GLOBULIN RATIO 0.9 (1.0-1.7); CALCIUM 9.2 mg/dL (8.5-10.1); CREATININE 0.7 mg/dL (0.6-1.0); GFR 82.3; POTASSIUM 4.1 mmol/L (3.5-5.1); TOTAL BILIRUBIN 0.4 mg/dL (0.2-1.0); TOTAL PROTEIN 7.4 g/dL (6.4-8.2)
[2019-01-03] MEDS: ENOXAPARIN ** NOTE DOSE ** SYRINGE SQ SCH (08:43)
[2019-01-03] MEDS ORDERED: APIX5TAB3 PO (09:07)
[2019-01-03] MEDS ORDERED: APIXABAN 5 MG TABLET. PO ONE (09:45)
--- NOTE | 2019-01-03 11:05 | HP ---
ADMIT DATE: 01/03/2019 HISTORY OF PRESENT ILLNESS: A 73-year-old female. She was having severe pain of the right side of her neck and also deep breathing. The patient had D-dimer was elevated. Came in through the Emergency Room. demonstrated bilateral clots. Dopplers of the legs were negative. The patient was admitted for further evaluation of her blood clots bilateral. She was having some pain on taking a deep breath and denies any fever, chills, night sweats. PAST MEDICAL HISTORY: Hypercholesterolemia, diverticulitis, abdominal surgery, appendectomy, cholecystectomy, GERD, urinary tract infections, hypothyroidism. INFLUENZA VACCINE: Up-to-date. FAMILY HISTORY: Mother with history of dementia. ALLERGIES: PENICILLIN, STEROIDS, SULFUR, DEXAMETHASONE, SULFASALAZINE. HOME MEDICATIONS: Reconciled. . SOCIAL HISTORY: Denies smoking, alcohol or drug use. Full code. REVIEW OF SYSTEMS: onset of chest pain with deep breath. Denies any headaches, visual changes, blurred vision, double vision, any neurological symptoms negative. Denies abdominal pain. Denies nausea, vomiting. Denies any other abnormality there. PHYSICAL EXAMINATION: GENERAL: White female in moderate amount of discomfort. VITAL SIGNS: 142/70, respiratory rate 20, pulse 90, afebrile. The patient is alert and oriented. MOUTH AND THROAT: Normal. NECK: Supple. LUNGS: Clear. HEART: Regular sinus rhythm. ABDOMEN: Soft, nontender, no rebound or guarding. Positive bowel sounds, no hepatosplenomegaly was noted. EXTREMITIES: No clubbing, cyanosis, nor edema. NEUROLOGIC: Intact. LABORATORY DATA: The patient's CBC was normal as was her chemistries. D-dimer not repeated and was done as an outpatient was 2.1. IMPRESSION: Bilateral pulmonary emboli, history of hypertension. The patient was admitted, started on Lovenox. KIRA BRICEÑO MD DR: JEREMI/mohit JOB#: [id number] / [id number]
[2019-01-03] MEDS ORDERED: FENOFIBRATE NANOCRYSTALLIZED 48 MG TABLET PO SCH (21:00)
== END 2019-01-03 10:31 | disposition home or self-care (01) ==
LOC: ER 09:51 → 1 SOUTH 11:47 → INTOOBSV 11:47
PROVIDERS: ADMIT Family Medicine; ATTEND Family Medicine
DX: I26.99 Other pulmonary embolism without acute cor pulmonale (principal); E03.9 Hypothyroidism, unspecified; E78.00 Pure hypercholesterolemia, unspecified; I10 Essential (primary) hypertension; K21.9 Gastro-esophageal reflux disease without esophagitis; Z90.49 Acquired absence of other specified parts of digestive tract; Z88.0 Allergy status to penicillin; Z88.2 Allergy status to sulfonamides; Z88.8 Allergy status to other drugs, medicaments and biological substances; Z87.440 Personal history of urinary (tract) infections
CPT/HCPCS: 36415; 71275; 80053; 85025; 85610; 85730; 93970; 96372; 99284; G0378; J1650; 96360; G0379; 99285-25; J7030

== ENCOUNTER 2020-04-02 19:34 | Emergency (ER) | payer MEDICARE ==
[~2020-04-02] VITALS: Ht 158.8 cm; Wt 72.2 kg
[2020-04-02 19:34] VITALS: BP 151/94
[~2020-04-02 19:34] MED LIST changes: +APIX5TAB3 PO; +OMEP20CA16 PO; -OMEP20CA9 PO
--- NOTE | 2020-04-02 20:10 | PHYS DOC ---
Past History Past Medical History: Diverticulitis, High Cholesterol, UTI Past Surgical History: Cholecystectomy Alcohol Use: None Drug Use: None General Adult EDM: Chief Complaint: SORE THROAT HPI: HPI: 74-year-old female presents with nasal congestion, postnasal drip, sore throat for last 2 days. She took some Benadryl today at 2 PM and that helped with the postnasal drip a little bit. She is most concerned about the sore throat. 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 She denies fever chills. No history of seasonal allergies. Review of Systems: Review of Systems: Constitutional: Denies fever or chills Eyes: Denies change in visual acuity HENT: Nasal congestion and sore throat Respiratory: Intermittent cough without shortness of breath Cardiovascular: Denies chest pain or edema GI: Denies abdominal pain, nausea, vomiting, bloody stools or diarrhea : Denies dysuria Musculoskeletal: Denies back pain or joint pain Integument: Denies rash Neurologic: Denies headache, focal weakness or sensory changes Endocrine: Denies polyuria or polydipsia Lymphatic: Denies swollen glands Psychiatric: Denies depression or anxiety Heart Score: Risk Factors: Risk Factors: DM, Current or recent (<one month) smoker, HTN, HLP, family history of CAD, obesity. Risk Scores: Score 0 - 3: 2.5% MACE over next 6 weeks - Discharge Home Score 4 - 6: 20.3% MACE over next 6 weeks - Admit for Clinical Observation Score 7 - 10: 72.7% MACE over next 6 weeks - Early Invasive Strategies Allergies: Allergies: Allergies Coded Allergies Type Severity Reaction Last Updated Verified Penicillins Allergy Intermediate 12/10/18 Yes Sulfa (Sulfonamide Antibiotics) Allergy Intermediate 12/10/18 Yes dexamethasone Allergy Intermediate 12/10/18 Yes sulfasalazine Allergy Intermediate 12/10/18 Yes Uncoded Allergies Type Severity Reaction Last Updated Verified STEROIDS Adverse Reaction Unknown flushing, rapid heartrate, sleeplessness 02/25/18 Physical Exam: PE: Constitutional: Well developed, well nourished, no acute distress, non-toxic appearance. [] HENT: Normocephalic, atraumatic, bilateral external ears normal, oropharynx erythematous without exudates, nose congested. Right tympanic membrane mildly erythematous [] Eyes: PERRLA, EOMI, conjunctiva normal, no discharge. [] Neck: Normal range of motion, no tenderness, supple, no stridor. [] Cardiovascular:Heart rate regular rhythm, no murmur [] Lungs & Thorax: Bilateral breath sounds clear to auscultation [] Abdomen: Bowel sounds normal, soft, no tenderness, no masses, no pulsatile masses. [] Skin: Warm, dry, no erythema, no rash. [] Back: No tenderness, no CVA tenderness. [] Extremities: No tenderness, no cyanosis, no clubbing, ROM intact, no edema. [] Neurologic: Alert and oriented X 3, normal motor function, normal sensory function, no focal deficits noted. [] Psychologic: Affect normal, judgement normal, mood normal. [] EKG: EKG: [] Radiology/Procedures: Radiology/Procedures: [] Course & Med Decision Making: Course & Med Decision Making Pertinent Labs and Imaging studies reviewed. (See chart for details) The patient's rapid strep is negative. Her chest x-ray is negative for acute f indings. Her right ear is suspicious for otitis media. I will treat her with azithromycin for 5 days. We will give the first dose in the emergency room. She is stable for discharge at this time. [] Dragon Disclaimer: Dragon Disclaimer: This electronic medical record was generated, in whole or in part, using a voice recognition dictation system. Departure Departure: Impression: Primary Impression: Right otitis media Disposition: HOME/RESIDENCE PRIOR TO ADM Condition: STABLE Referrals: KIRA BRICEÑO MD (PCP) Patient Instructions: Otitis Media, Adult, [id number] Scripts Azithromycin (AZITHROMYCIN TABLET) 250 Mg Tablet 250 MG PO DAILY for ANTI-BIOTIC for 4 Days, #4 TAB 0 Refills Prov: NAZARIO FUNEZ DO 04/02/20 Justification of Admission: Justification of Admission: Justification of Admission Dx: N/A NAZARIO FUNEZ DO Apr 02, 2020 20:09
[2020-04-02] MEDS ORDERED: AZIT250T6 PO (20:59)
[2020-04-02] MEDS ORDERED: AZITHROMYCIN 250 MG TABLET. PO ONE (21:00)
--- NOTE | 2020-04-02 21:05 | RAD ---
EXAM: PA and Lateral Views of the Chest DATE: 04/02/2020 7:56 PM INDICATION: Cough COMPARISON: 12/27/2018 FINDINGS. IMPRESSION: The heart is not enlarged. Atherosclerotic calcifications of the tortuous aorta are seen. Calcified left hilar lymph nodes are seen. Linear opacities right and left lung base likely atelectasis or scarring. No pneumothorax. Small right pleural effusion. Electronically signed by: Alfa Hoyos MD (04/02/2020 9:02 PM) [facility]
[2020-04-02] MEDS ORDERED: AZITHROMYCIN 250 MG TABLET. ONE ×2 (21:07)
== END 2020-04-02 21:10 | disposition home or self-care (01) ==
LOC: ER 19:34
DX: H66.91 Otitis media, unspecified, right ear (principal); R09.81 Nasal congestion; J02.9 Acute pharyngitis, unspecified; R09.82 Postnasal drip; E78.00 Pure hypercholesterolemia, unspecified; Z87.440 Personal history of urinary (tract) infections; Z88.0 Allergy status to penicillin; Z88.2 Allergy status to sulfonamides; Z88.8 Allergy status to other drugs, medicaments and biological substances
CPT/HCPCS: 71046; 87070; 87880; 99284; J0456

== ENCOUNTER → 2020-07-26 | Outpatient (CLI) | payer MEDICARE ==
[~2020-07-26] MED LIST changes: +AZIT250T6 PO
--- NOTE | 2020-08-07 11:50 | RAD ---
DATE: 07/26/2020 11:50 AM EXAM: MAMMO SOUTH SCREENING BILATERAL HISTORY: Screening COMPARISON: 05/30/2015 Bilateral CC and MLO views of the breasts were performed. Bilateral breast tomosynthesis was performed in CC and MLO projections. This study was interpreted with the benefit of Computerized Aided Detection (CAD). FINDINGS: Breast Density: SCATTERED The breast parenchyma shows scattered fibroglandular densities. Breast parenchyma level B No suspicious masses, microcalcifications or architectural distortion is present to suggest malignancy in either breast. The visualized axillae are unremarkable. IMPRESSION: No mammographic evidence of malignancy. BI-RADS CATEGORY: 1 NEGATIVE RECOMMENDED FOLLOW-UP: 12M 12 MONTH FOLLOW-UP Annual screening mammography is recommended, unless clinically indicated sooner based on symptoms or change in physical exam. PQRS compliance statement: Patient information was entered into a reminder system with a target due date for the next mammogram. Mammography is a sensitive method for finding small breast cancers, but it does not detect them all and is not a substitute for careful clinical examination. A negative mammogram does not negate a clinically suspicious finding and should not result in delay in biopsying a clinically suspicious abnormality. "Our facility is accredited by the [employer] Mammography Program."
== END ==
LOC: MAMMO 10:56
PROVIDERS: ATTEND Obstetrics & Gynecology
DX: Z12.31 Encounter for screening mammogram for malignant neoplasm of breast (principal)
CPT/HCPCS: 77063; 77067

== ENCOUNTER 2020-11-02 14:17 | Emergency (ER) | payer MEDICARE ==
[~2020-11-02] VITALS: Ht 158.8 cm; Wt 72.2 kg
[2020-11-02 14:17] VITALS: BP 15/79
--- NOTE | 2020-11-02 15:47 | PHYS DOC ---
Past History Past Medical History: Diverticulitis, High Cholesterol, UTI Past Surgical History: Cholecystectomy Alcohol Use: None Drug Use: None General Adult EDM: Chief Complaint: UPPER EXTREMITY PAIN HPI: HPI: Patient is a 75-year-old female, accompanied by her son, who presents emergency department with complaints of pain in her posterior upper arms that began at 1:00 this afternoon. Patient states that she did shovel some snow yesterday. She denies any injury, numbness, tingling, or weakness of her upper extremities. She denies any swelling, warmth, or redness of her upper extremities. Patient states she was sitting in her kitchen table when she noticed that the back of her left arm started to ache. She applied some Aspercreme to the posterior left upper arm and then noticed that the back of her right arm also hurt radiating to her right shoulder. So she put some Aspercreme on the back of her right arm to. Patient states since she has arrived the pain has completely resolved. She denies any abdominal pain, chest pain, palpitations, shortness of breath, fever, cough, nausea, vomiting, diarrhea, diaphoresis, body aches, or fatigue. She currently denies any pain. Review of Systems: Review of Systems: Complete ROS is negative unless otherwise noted in HPI. Allergies: Allergies: Allergies Coded Allergies Type Severity Reaction Last Updated Verified Penicillins Allergy Intermediate 12/10/18 Yes Sulfa (Sulfonamide Antibiotics) Allergy Intermediate 12/10/18 Yes dexamethasone Allergy Intermediate 12/10/18 Yes sulfasalazine Allergy Intermediate 12/10/18 Yes Uncoded Allergies Type Severity Reaction Last Updated Verified STEROIDS Adverse Reaction Unknown flushing, rapid heartrate, sleeplessness 02/25/18 Physical Exam: PE: See Above Constitutional: Well developed, well nourished, no acute distress, non-toxic appearance. [] HENT: Normocephalic, atraumatic, bilateral external ears normal, nose normal. [] Eyes: PERRLA, EOMI, conjunctiva normal, no discharge. [] Neck: Normal range of motion, no stridor. [] Cardiovascular:Heart rate regular rhythm Lungs & Thorax: Respirations even and unlabored, no retractions, no respiratory distress Skin: Warm, dry, no erythema, no rash. [] Extremities: BUE: No bony tenderness or deformity, 2+ radial pulses, cap refill less than 2 seconds, no cyanosis, ROM intact, no edema. [] Neurologic: Alert and oriented X 3, no focal deficits noted. [] Psychologic: Affect normal, judgement normal, mood normal. [] EKG: EKG: [] Radiology/Procedures: Radiology/Procedures: [] Heart Score: Risk Factors: Risk Factors: DM, Current or recent (<one month) smoker, HTN, HLP, family history of CAD, obesity. Risk Scores: Score 0 - 3: 2.5% MACE over next 6 weeks - Discharge Home Score 4 - 6: 20.3% MACE over next 6 weeks - Admit for Clinical Observation Score 7 - 10: 72.7% MACE over next 6 weeks - Early Invasive Strategies Course & Med Decision Making: Course & Med Decision Making Pertinent Labs and Imaging studies reviewed. (See chart for details) 75-year-old female presented to the emergency department with complaints of pain in both of posterior upper arms that was resolved after applying Aspercreme. Patient denied any injury, she denied any other complaints. I discussed the patient with Dr. Bob who agrees with treatment and plan of care. I advised the patient to continue application of Aspercreme as needed may also take Tylenol for pain. I encouraged her to follow-up with her primary care doctor in the next 1 to 2 days, return to the ER if symptoms worsen or fever develop. Patient verbalized an understanding of home care, medications, follow-up, and return to ED instructions and was in agreement with the plan of care. [] Dragon Disclaimer: Dragon Disclaimer: This electronic medical record was generated, in whole or in part, using a voice recognition dictation system. Departure Departure: Impression: Primary Impression: Bilateral arm pain Additional Impression: Myalgia Disposition: 01 DC HOME SELF CARE/HOMELESS Condition: STABLE Referrals: KIRA BRICEÑO MD (PCP) Patient Instructions: Myalgia, Adult Additional Instructions: COntinue use of Aspercreme as needed for pain. May also take Tylenol as needed for discomfort. Follow up with your primary care doctor in 1-2 days. Return to the ER if your symptoms worsen or fever develops. CONNOR DENG APRN Nov 02, 2020 15:46
== END 2020-11-02 15:50 | disposition home or self-care (01) ==
LOC: ER 14:17
DX: M79.622 Pain in left upper arm (principal); M79.621 Pain in right upper arm; M79.10 Myalgia, unspecified site; E78.00 Pure hypercholesterolemia, unspecified; Z90.49 Acquired absence of other specified parts of digestive tract; Z88.0 Allergy status to penicillin; Z88.2 Allergy status to sulfonamides; Z88.8 Allergy status to other drugs, medicaments and biological substances
CPT/HCPCS: 99282